=== PATIENT | female | born 1950 | race Two or more races ===

== ENCOUNTER 2021-03-19 14:36 | Inpatient (IN) | payer BC, MEDICARE ==
[~2021-03-19] VITALS: Ht 152.4 cm; Wt 93.2 kg
[~2021-03-19 14:36] MED LIST: ALBU2TAB4 INH; ALEN70TA74 PO; AMIO200T33 PO; FURO40TA4 PO; METO25TA93 PO; PAR20T PO; POTA20IN4 PO; ROSU1TAB14 PO; WARF5TAB71 PO
[2021-03-19 18:59] LABS: Basophils # (auto) 0.1 10 ^3/uL (0-0.2); Basophils % (auto) 0.7 % (0.0-2.0); Eosinophils # (auto) 0.2 10 ^3/uL (0-0.8); Eosinophils % (auto) 1.8 % (0.0-7.0); Hemoglobin 12.6 g/dL (12.2-16.2); Lymphocytes % (auto) 21.1 % (10.0-50.0); Mean Corpuscular Hemoglobin 29.3 pg (28.0-32.0); Mean Corpuscular Hgb Conc. 33.3 g/dL (32.0-36.0); Monocytes # (auto) 0.7 10 ^3/uL (0-1.3); Monocytes % (auto) 7.8 % (0.0-12.0); Neutrophils # (auto) 6.4 10 ^3/uL (1.6-8.6); Neutrophils % (auto) 68.6 % (37.0-80.0); Red Blood Cells 4.32 10^6/uL (4.0-5.20); Red Cell Distribution Width 13.9 % (11.8-14.3); White Blood Cell 9.3 10^3/uL (4.4-10.8)
[2021-03-19 19:22] LABS: Albumin 4.2 g/dL (3.4-5.0); Calcium 8.9 mg/dL (8.5-10.1); Potassium 4.6 mmol/L (3.5-5.1)
[2021-03-19 19:29] LABS: BUN/Creatinine Ratio 21.6; Bilirubin, Total 0.4 mg/dL (0.2-1.0); Total Protein 7.9 g/dL (6.4-8.2)
[2021-03-19] MEDS ORDERED: CLOPIDOGREL BISULFATE 75 MG TAB PO ONE (20:00)
[2021-03-19] MEDS ORDERED: ASPirin 81 mg TAB PO ONE (20:00)
[2021-03-19] MEDS ORDERED: FUROSEMIDE 20 MG/2 ML VIAL IV ONE (21:00)
[2021-03-19] MEDS ORDERED: ENOXAPARIN SOD 100 MG/1 ML SYRINGE SC ONE (21:00)
[2021-03-19] MEDS ORDERED: MORPHINE SULFATE INJECTION 2 MG/ML SYRG IV PRN (21:00)
[2021-03-19] MEDS ORDERED: ONDANSETRON HCL 4 MG/2 ML VIAL IV PRN (21:00)
[2021-03-19] MEDS ORDERED: NITROGLYCERIN 0.4 MG SL TAB SL PRN (21:00)
[2021-03-19] MEDS ORDERED: ACETAMINOPHEN 325 MG TAB PO PRN (21:00)
[2021-03-19 22:00] VITALS: BP 123/68
[2021-03-19] MEDS ORDERED: ATORVASTATIN 20 MG TAB PO SCH (22:00)
[2021-03-19 22:27] LABS: INR 2.57 (0.9-1.15); Partial Thromboplastin Time 43.9 sec (23.6-33.0)
[2021-03-19] MEDS ORDERED: guaiFENesin-DM 100/10mg/5ml SYR PO PRN (22:45)
[2021-03-19] MEDS: TEMAZEPAM 15 MG CAP PO PRN (22:58)
[2021-03-20] MEDS ORDERED: ALBU108A5 IN (04:35)
[2021-03-20] MEDS ORDERED: FURO20TA3 PO (04:35)
[2021-03-20] MEDS ORDERED: ROSU20TA14 PO (04:35)
[2021-03-20] MEDS ORDERED: FAMO20TA10 PO (04:35)
[2021-03-20] MEDS ORDERED: IPRIH IN (04:38)
[2021-03-20 04:43] VITALS: BP 122/66
[2021-03-20 06:41] LABS: Basophils # (auto) 0.1 10 ^3/uL (0-0.2); Basophils % (auto) 0.8 % (0.0-2.0); Eosinophils # (auto) 0.3 10 ^3/uL (0-0.8); Eosinophils % (auto) 3.8 % (0.0-7.0); Hematocrit 36.9 % (36.0-46.0); Hemoglobin 12.4 g/dL (12.2-16.2); Lymphocytes # (auto) 2.5 10 ^3/uL (0.4-5.4); Mean Corpuscular Hemoglobin 29.5 pg (28.0-32.0); Mean Corpuscular Hgb Conc. 33.6 g/dL (32.0-36.0); Mean Corpuscular Volume 87.9 fL (80.0-100.0); Monocytes # (auto) 0.6 10 ^3/uL (0-1.3); Monocytes % (auto) 7.5 % (0.0-12.0); Neutrophils # (auto) 4.1 10 ^3/uL (1.6-8.6); Neutrophils % (auto) 54.9 % (37.0-80.0); Nucleated Red Blood Cells % 0.1 %; Red Cell Distribution Width 13.8 % (11.8-14.3); White Blood Cell 7.5 10^3/uL (4.4-10.8)
[2021-03-20 06:46] LABS: INR 2.1 (0.9-1.15)
[2021-03-20 06:51] LABS: BUN/Creatinine Ratio 21.3; Calcium 8.8 mg/dL (8.5-10.1); Potassium 3.9 mmol/L (3.5-5.1)
[2021-03-20 09:00] VITALS: BP 116/58
[2021-03-20] MEDS: AMIODARONE HCL 200 MG TAB PO SCH (09:36)
[2021-03-20] MEDS: FUROSEMIDE 40 MG TAB PO SCH (09:36)
[2021-03-20] MEDS: PANTOPRAZOLE 40 MG TAB PO SCH (09:37)
[2021-03-20] MEDS: METOPROLOL SUCCINATE XL 50 MG TAB PO SCH (09:38)
[2021-03-20 13:00] VITALS: BP 117/62
[2021-03-20 17:00] VITALS: BP 103/66
[2021-03-20] MEDS ORDERED: WARFARIN SODIUM 2 MG TAB PO ONE (17:00)
[2021-03-20 17:03] LABS: Magnesium 2.3 mg/dL (1.6-2.6)
[2021-03-20] MEDS ORDERED: ASPirin 81 mg TAB PO ONE (17:45)
[2021-03-20] MEDS: SODIUM CHLORIDE 0.9% 1,000 ML IV SCH (18:14)
[2021-03-20] MEDS: ATORVASTATIN 20 MG TAB PO SCH (20:21)
[2021-03-20] MEDS: TEMAZEPAM 15 MG CAP PO PRN (21:08)
[2021-03-20 22:00] VITALS: BP 127/66
[2021-03-21] VITALS (10 sets, daily range): BP systolic 108–133; BP diastolic 47–66
[2021-03-21] MEDS: SODIUM CHLORIDE 0.9% 1,000 ML IV SCH ×2 (06:07→20:25)
[2021-03-21 06:44] LABS: INR 1.65 (0.9-1.15); Partial Thromboplastin Time 31.9 sec (23.6-33.0)
[2021-03-21 06:47] LABS: Basophils # (auto) 0 10 ^3/uL (0-0.2); Basophils % (auto) 0.4 % (0.0-2.0); Eosinophils # (auto) 0.4 10 ^3/uL (0-0.8); Eosinophils % (auto) 4.9 % (0.0-7.0); Hematocrit 36.1 % (36.0-46.0); Lymphocytes # (auto) 1.9 10 ^3/uL (0.4-5.4); Lymphocytes % (auto) 26.3 % (10.0-50.0); Mean Corpuscular Hemoglobin 29.4 pg (28.0-32.0); Mean Corpuscular Hgb Conc. 33.3 g/dL (32.0-36.0); Mean Corpuscular Volume 88.1 fL (80.0-100.0); Monocytes # (auto) 0.7 10 ^3/uL (0-1.3); Monocytes % (auto) 9.6 % (0.0-12.0); Neutrophils # (auto) 4.3 10 ^3/uL (1.6-8.6); Neutrophils % (auto) 58.8 % (37.0-80.0); Nucleated Red Blood Cells % 0.2 %; Red Blood Cells 4.09 10^6/uL (4.0-5.20); Red Cell Distribution Width 13.9 % (11.8-14.3); White Blood Cell 7.3 10^3/uL (4.4-10.8)
[2021-03-21 06:49] LABS: Calcium 8.5 mg/dL (8.5-10.1); Potassium 4.4 mmol/L (3.5-5.1)
[2021-03-21] MEDS ORDERED: LIDOCAINE 2%HCL (LOCAL ANESTH.) INJ 20ML MDV ONE (08:07)
[2021-03-21] MEDS ORDERED: IODIXANOL 320MG/ML 100ML BTL IV ONE (08:07)
[2021-03-21] MEDS ORDERED: ANGIOMAX 250 MG VIAL IV ONE (08:30)
[2021-03-21] MEDS ORDERED: VERAPAMIL 2.5MG/ML INJ 2ML VIAL IV ONE (08:30)
[2021-03-21] MEDS ORDERED: HEPARIN SODIUM (PORCINE) 5000 UNITS/ML 1ML VIAL ONE ×2 (08:30→08:43)
[2021-03-21] MEDS ORDERED: MIDAZOLAM HCL 2MG/2ML 2ml VIAL (1mg/ml) ONE (08:31)
[2021-03-21] MEDS ORDERED: SODIUM CHL 0.9% 0 ML ONE (08:31)
[2021-03-21] MEDS ORDERED: fentaNYL CITRATE 100 MCG/2 ML VL ONE (08:31)
[2021-03-21] MEDS: ASPirin 81 mg TAB PO SCH (10:00)
[2021-03-21] MEDS: AMIODARONE HCL 200 MG TAB PO SCH (14:45)
[2021-03-21] MEDS: PANTOPRAZOLE 40 MG TAB PO SCH (14:46)
[2021-03-21] MEDS: METOPROLOL SUCCINATE XL 50 MG TAB PO SCH (14:46)
[2021-03-21] MEDS: FUROSEMIDE 40 MG TAB PO SCH (14:46)
[2021-03-21] MEDS ORDERED: WARFARIN SODIUM 2 MG TAB PO ONE (17:00)
[2021-03-21] MEDS: ATORVASTATIN 20 MG TAB PO SCH (21:41)
[2021-03-21] MEDS: TEMAZEPAM 15 MG CAP PO PRN (21:41)
[2021-03-22 05:00] VITALS: BP 116/47
[2021-03-22 08:39] VITALS: BP 123/59
[2021-03-22] MEDS: SODIUM CHLORIDE 0.9% 1,000 ML IV SCH (09:45)
[2021-03-22] MEDS: FUROSEMIDE 40 MG TAB PO SCH (10:00)
[2021-03-22] MEDS: PANTOPRAZOLE 40 MG TAB PO SCH (10:00)
[2021-03-22] MEDS: ASPirin 81 mg TAB PO SCH (10:00)
[2021-03-22] MEDS: AMIODARONE HCL 200 MG TAB PO SCH (10:00)
[2021-03-22] MEDS: METOPROLOL SUCCINATE XL 50 MG TAB PO SCH (10:00)
[2021-03-22 13:00] VITALS: BP 125/88
[2021-03-22 13:57] VITALS: BP 125/88
== END 2021-03-22 14:25 | disposition home or self-care (01) | DRG 280 ==
LOC: EDBD 14:36 → EDUNIT# 14:36 → ER 14:36 → TELE 20:48 → TELE-CENTR 21:45
PROVIDERS: ADMIT Nurse Practitioner; ATTEND Internal Medicine
PROC: B211YZZ Fluoroscopy of Multiple Coronary Arteries using Other Contrast (ICD-10-PCS; principal; 2021-03-21)
DX: I21.4 Non-ST elevation (NSTEMI) myocardial infarction (principal); I50.43 Acute on chronic combined systolic (congestive) and diastolic (congestive) heart failure; I13.0 Hypertensive heart and chronic kidney disease with heart failure and stage 1 through stage 4 chronic kidney disease, or unspecified chronic kidney disease; D68.8 Other specified coagulation defects; E66.9 Obesity, unspecified; E78.5 Hyperlipidemia, unspecified; I25.10 Atherosclerotic heart disease of native coronary artery without angina pectoris; I48.0 Paroxysmal atrial fibrillation; N18.30 Chronic kidney disease, stage 3 unspecified; R73.03 Prediabetes; Z20.822 Contact with and (suspected) exposure to COVID-19; Z68.36 Body mass index [BMI] 36.0-36.9, adult; Z79.01 Long term (current) use of anticoagulants; Z82.49 Family history of ischemic heart disease and other diseases of the circulatory system; Z83.3 Family history of diabetes mellitus; Z87.891 Personal history of nicotine dependence; Z95.2 Presence of prosthetic heart valve
CPT/HCPCS: 36415; 71046; 80048; 80053; 80061; 83036; 83735; 83880; 84443; 84484; 85025; 85610; 85730; 87426; 93005; 93306; 93454; 96372; 96374; 99152; 99153; G0378; J2250; Q9967